=== PATIENT | male | born 1975 | race African-American/Black ===

== ENCOUNTER 2025-06-13 11:23 | Emergency (ER) | payer OTHER, SELFPAY ==
[~2025-06-13] VITALS: Ht 162.6 cm; Wt 65.7 kg
[2025-06-13] MEDS: KETOROLAC 60 MG/2 ML VIAL IM ONE (14:00)
[2025-06-13 14:33] VITALS: BP 160/95; TEMP 97.7; O2SAT 99
== END 2025-06-13 14:36 | disposition home or self-care (01) ==
LOC: M ED 12:19
DX: S83.8X1A Sprain of other specified parts of right knee, initial encounter (principal); S83.8X2A Sprain of other specified parts of left knee, initial encounter; Y99.0 Civilian activity done for income or pay; Y92.89 Other specified places as the place of occurrence of the external cause; Y93.89 Activity, other specified
CPT/HCPCS: 73564; 96372; 99284; J1885